=== PATIENT | male | born 1970 | race African-American/Black ===

== ENCOUNTER 2022-01-17 11:24 | Emergency (ER) | payer OTHER ==
[~2022-01-17] VITALS: Ht 182.9 cm; Wt 110.0 kg
[2022-01-17 12:44] LABS: EOSINOPHILS % 2.6 % (0.0-5.0); HEMATOCRIT. 41.9 % (42.0-52.0); HEMOGLOBIN. 14.2 g/dL (14.0-18.0); LYMPHOCYTES % 27.2 % (20.0-50.0); MEAN CORPUSCULAR VOLUME 91.2 fL (80.0-94.0); MEAN PLATELET VOLUME 10.3 fl (7.4-10.4); MONOCYTES % 9.1 % (2.0-8.0); NEUTROPHILS % 60.1 % (40.0-76.0); PLATELET 227 x1000/uL (130-400); RED BLOOD CELL COUNT 4.59 mill/uL (4.7-6.1); RED CELL DISTRIBUTION WIDTH 14.6 % (11.6-14.6)
[2022-01-17 12:54] LABS: INR 3.4; PROTHROMBIN TIME 33.5 sec (9.6-11.0)
[2022-01-17 12:56] LABS: CHLORIDE 108 mEq/L (98-107)
[2022-01-17] MEDS: SODIUM CHLORIDE 0.9% 1,000 ML IV ONE (13:38)
[2022-01-17 14:15] VITALS: BP 114/64
== END 2022-01-17 14:44 | disposition home or self-care (01) ==
LOC: ER 11:37 → CANBEDREQ 17:23
DX: R00.2 Palpitations (principal); E05.90 Thyrotoxicosis, unspecified without thyrotoxic crisis or storm; I48.91 Unspecified atrial fibrillation; E78.00 Pure hypercholesterolemia, unspecified; I10 Essential (primary) hypertension; Z88.0 Allergy status to penicillin
CPT/HCPCS: 36415; 71045; 80053; 83735; 83880; 84443; 84484; 85025; 85610; 93005; 96360; 99285; J7030